=== PATIENT | female | born 1975 | race Caucasian/White ===

== ENCOUNTER → 2017-01-10 | Outpatient (CLI) | payer OTHER ==
[~2017-01-10] MED LIST: ALBUTEROL MININEB NEB; ALBUTEROL17 GM INH; COUMADIN2.5 MG PO; FISH OIL500 M1 PO; GABAPENTIN300 MG PO; HYDROCODON-ACE1 EAC5 PO; IBUPROFEN800 MG PO; NAPROSYN500 MG PO; NAPROXEN PO; OXYCODONE-ACET1 EAC1 PO; VITAMIN D50000 UNIT PO; ZESTRIL10 MG PO; ZOFRAN ODT4 MG PO
--- NOTE | ~2017-01-10 | EKG ---
PATIENT: LUAN CAMACHO UNIT #: [id number] Ventricular Rate: 70 BPM Atrial Rate: 70 BPM P-R Interval: 128 ms QRS Duration: 72 ms Q-T Interval: 406 ms QTC Calculation(Bezet): 438 ms P [place]: 24 degrees Calculated R [place]: 19 degrees Calculated T [place]: 36 degrees Diagnosis Line: Normal sinus rhythm with sinus arrhythmia Diagnosis Line: Normal ECG Diagnosis Line: No previous ECGs available Diagnosis Line: Confirmed by ARIEL LEI MD ([id number]) on 01/11/2017 Diagnosis Line: 6:30:29 PM INTERPRETING MD: QUIQUE MANUEL
--- NOTE | ~2017-01-10 | CR63 ---
[facility]. [facility] A Service of [facility] & [facility] RADIOLOGY TEXT RESULTS PATIENT: LUAN CAMACHO LOCATION: [facility] : [birth year] UNIT #: [id number] AGE: [address]: Wilmar Fuentes MD SEX: F ORDER DR: [id number] [facility] [address] [place], [place] [address] [id number] O MR#: [id number] Acc #: [id number] NAME: LUAN CAMACHO : 1975 SEX: F STUDY DATE/TIME: 01/10/2017 9:23 UNIT: [facility] ROOM: STUDY DESCRIPTION: CR Chest 2 View Attending Physician: Wilmar Fuentes M.D. Referring Physician: Wilmar Fuentes M.D. Ordering Physician: Wilmar Fuentes M.D. Primary Care Physician: Atiya Garcia M.D. 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 Instability. COMPARISON Chest, 09/30/2015 FINDINGS Two-view chest demonstrates normal cardiac size and configuration. Hilar structures and mediastinal contours are preserved. Bilateral lungs are clear. IMPRESSION Negative chest. Dictated by... Yogi Laureano M.D. THIS IS AN ELECTRONICALLY VERIFIED REPORT Yogi Laureano M.D. at 01/10/2017 3:35 PM Elizabeth TD: 01/10/2017 13:19 JOB #: [id number] MEDICAL IMAGING REPORT Page 1 of 1 COPY
--- NOTE | ~2017-01-10 | CO ---
Unit #: [id number] #: [id number] Patient: LUAN CAMACHO [id number] [address] [place], [place] [address] [id number] O MR#: [id number] NAME: LUAN CAMACHO ROOM: Age: 42 Sex: F Admission Date: 01/10/2017 : 1975 Attending Physician: Wilmar Fuentes M.D. Primary Care Physician: Atiya Garcia M.D. Consultation Date: 01/10/2017 CONSULTATION REPORT REASON FOR CONSULTATION Preoperative medical evaluation prior to conversion from unicompartmental knee to total right knee arthroplasty scheduled by Dr. Fuentes for 01/24/2017. HISTORY OF PRESENT ILLNESS The patient is a 42-year-old female, who presents to preprocedural screening for the reasons indicated above. Other than baseline complained pain in the right knee, she has no complaints today. She denies upper chest, back, arm, neck, jaw pain or pressure. She has a history of asthma and becomes short of air when climbing up stairs or on long walks. She attributes this to not using her inhaler in the past 3 months. She denies palpitations, dizziness, or fainting. Denies history of myocardial infarction, congestive heart failure, CVA, TIA, kidney disease, or diabetes mellitus. She is tested for HIV periodically due to a known and ongoing relationship exposure. She reports that all prior HIV evaluations have been negative. She has been evaluated by Dr. Fuentes and scheduled for the above-referenced procedure. PAST MEDICAL HISTORY Osteoarthritis; obesity, BMI of 35; asthma, controlled; hypertension; history of back pain; history of right lower extremity neuropathy; and known HIV exposure, most recent test one month ago through her significant other's provider in [place] with negative results per her report. PAST SURGICAL HISTORY Fallopian tube surgery, partial right total knee arthroplasty, and three arthroscopies. The patient denies a personal and family history of complications to anesthesia. SOCIAL HISTORY Denies tobacco use and illicit drug use. Consumes alcohol socially. FAMILY HISTORY Grandmother, breast cancer. Grandfather, throat cancer. Uncle, colon cancer. REVIEW OF SYSTEMS The patient denies urinary frequency, dysuria, hematuria, or foul-smelling urine. She prefers to await urine culture and sensitivity results prior to treatment with antibiotic as she is asymptomatic today. ALLERGIES Aspirin "gives her a bad headache." Denies latex allergy. Unit #: [id number] #: [id number] Patient: LUAN CAMACHO CURRENT MEDICATIONS Zestril 10 mg p.o. daily, gabapentin 300 mg p.o. t.i.d., albuterol sulfate 3 mL nebulized q.i.d., Ventolin 2 puffs inhaled q.i.d. p.r.n. wheezing, and hydrocodone/acetaminophen 10/325 mg tablet one p.o. at bedtime. PHYSICAL EXAMINATION GENERAL: A 42-year-old female. Awake and alert, in no acute distress. VITAL SIGNS: Temperature 98.8, heart rate 76, respiratory rate 16, blood pressure 131/90, and oxygen saturation 98% on room air. HEENT: Atraumatic and normocephalic. Sclerae anicteric. No discharge from eyes, ears, or nares. LYMPH: No preauricular, postauricular, tonsillar, submental, anterior, posterior, or cervical adenopathy. ENDOCRINE: No thyromegaly, thyroid nodules, or tenderness. RESPIRATORY: Clear to auscultation in all jenkins bilaterally without wheezes, rhonchi, or rales. CARDIOVASCULAR: S1 and S2. Regular rate and rhythm without murmur or rub. GI: Bowel sounds positive. Nontender. Nondistended. EXTREMITIES: No edema, cyanosis, or clubbing. MUSCULOSKELETAL: Strength 5/5 in all extremities bilaterally to flexion and extension with exception of right lower extremity, which is 4/5 due to complaints of right knee pain. NEUROLOGIC: Alert and oriented x3. Speech clear. Follows instructions during examination. DIAGNOSTIC STUDIES LABORATORY RESULTS: WBC 9.2, hemoglobin 13.6, hematocrit 40.0, and platelet count 221,000. Sodium 135, potassium 4.2, chloride 106, CO2 of 21, glucose 90, BUN 10, creatinine 0.6, calcium 9.1, AST 20, ALT 21, alkaline phos 79, bilirubin total 0.6, total protein 7.0, and albumin 4.2. PT 9.9 and INR 0.9. Urinalysis; leukocyte esterase 2+, nitrite negative, wbc's 50 to 100, and bacteria 3+. Urine culture and sensitivity pending at this time. MRSA nasal swab report pending at this time. HIV test from today is nonreactive. IMAGING STUDIES: Two-view chest x-ray report pending at this time. CARDIOLOGY STUDIES: Normal sinus rhythm with sinus arrhythmia and normal ECG. Confirmed report pending at this time. IMPRESSION AND PLAN 1. The patient is a 42-year-old female, who presents to preprocedural screening for the reasons indicated above. Her preop medical evaluation Wynn revised cardiac risk index is equal to 0.4%. This represents the patient's perioperative risk of fatal or nonfatal myocardial infarction, cardiopulmonary arrest, arrhythmia and/or pulmonary edema. This has been discussed with the patient in detail and she wishes to proceed with surgery as scheduled at this time. 2. Obesity, BMI of 45. Weight loss is recommended. 3. History of asthma. The patient is controlled at this time. We will order inhaled bronchodilator postoperatively if indicated. 4. Hypertension. Blood pressure is stable. We will monitor perioperatively and adjust medications and IV fluids accordingly if indicated. 5. History of back pain, stable. Unit #: [id number] #: [id number] Patient: LUAN CAMACHO 6. History of right lower extremity neuropathy. 7. Known human immunodeficiency virus exposure. The patient's human immunodeficiency virus test is nonreactive today. 8. Questionable urinary tract infection. Again, the patient is asymptomatic today. Urine culture and sensitivity is pending and I have ordered a recheck UA via straight cath the a.m. of OR. Thank you for allowing us to participate in the care of this patient. We will gladly follow her for postop medical management pending order of Dr. Fuentes. Dictated by... Yesi Myrick A.P.R.N. for Jorge Enriquez/anthony TD: 01/11/2017 13:40 JOB #: [id number] CONSULTATION REPORT Page 1 of 1 X Yesi Myrick APRN X CONSULTATION REPORT
[2017-01-10 08:56] LABS: HEMOGLOBIN 13.6 gm/dL (12.0-16.0); MEAN CELL VOLUME 82.9 FL (83-96); MEAN CORPUSCULAR HEMOGLOBIN 28.3 PG (28-34); MEAN CORPUSCULAR HGB CONC 34.1 g/dL (30-36); MEAN PLATELET VOLUME 7.7 FL (6.5-11.5); RED BLOOD COUNT 4.82 X10e (3.90-5.30); RED CELL DISTRIBUTION WIDTH 12.9 % (11.0-15.5); WHITE BLOOD COUNT 9.2 X10e3 (4.0-10.5)
[2017-01-10 08:59] LABS: URINE APPEARANCE CLOUDY; URINE BILIRUBIN NEG (NEG); URINE BLOOD NEG (NEG); URINE COLOR YELLOW; URINE GLUCOSE NEG (NEG); URINE KETONE NEG (NEG); URINE LEUKOCYTE ESTERASE 2+ (NEG); URINE NITRATE NEG (NEG); URINE PH 5.5 (5-8); URINE PROTEIN NEG (NEG); URINE SPECIFIC GRAVITY 1.027 (1.003-1.035)
[2017-01-10 09:02] LABS: CULTURE INDICATED? YES; URBCS1 AUWI 0-2 /[HPF] (0-2); URINE BACTERIA AUWI 3+ (NEGATIVE); URINE SQUAMOUS EPITHELIAL CELL FEW /[HPF]; UWBCS1 AUWI 50-100 (0-5)
[2017-01-10 09:06] LABS: INR 0.9; PROTHROMBIN TIME (PATIENT) 9.9 SECONDS (9.6-11.5)
[2017-01-10 09:11] LABS: URINE SOURCE CLEAN CATCH
[2017-01-10 09:51] LABS: ALBUMIN SERUM 4.2 g/dL (3.5-5.0); BILIRUBIN,TOTAL 0.6 mg/dL (0.2-2.0); BUN/CREATININE RATIO 16.66; CALCIUM SERUM 9.1 mg/dL (8.4-10.2); CREATININE SERUM 0.6 mg/dL (0.6-1.4); GLOM FILT RATE Estimated 111.6 mL/min (>60); POTASSIUM 4.2 mmol/L (3.5-5.1)
== END | disposition home or self-care (01) ==
LOC: CAMB 07:42
PROVIDERS: Orthopaedic Surgery
DX: Z01.818 Encounter for other preprocedural examination (principal); T84.022A Instability of internal right knee prosthesis, initial encounter; J45.909 Unspecified asthma, uncomplicated; R06.02 Shortness of breath; M54.9 Dorsalgia, unspecified; I10 Essential (primary) hypertension; Z79.01 Long term (current) use of anticoagulants
CPT/HCPCS: 36415; 71020; 80053; 81003; 85027; 85610; 86850; 86900; 86901; 87070; 87086; 87806; 93005

== ENCOUNTER 2017-01-24 05:18 | Inpatient (IN) | payer OTHER ==
--- NOTE | ~2017-01-24 | OR ---
Unit #: [id number] #: [id number] Patient: LUAN CAMACHO [id number] [address] [place], [place] [address] [id number] I MR#: [id number] NAME: LUAN CAMACHO. ROOM: [facility] Date of Procedure: 01/24/2017 Admission Date: 01/24/2017 Surgeon: Wilmar Fuentes M.D. : 1975 Attending Physician: Wilmar Fuentes M.D. Referring Physician: Wilmar Fuentes M.D. Primary Care Physician: Atiya Garcia M.D. OPERATIVE REPORT PREOPERATIVE DIAGNOSIS Painful medial unicompartment, right knee. POSTOPERATIVE DIAGNOSIS Painful medial unicompartment, right knee. PROCEDURE PERFORMED Conversion to right total knee. ASSISTANTS Adilene Monsivais and Rosanna Navarrete. ANESTHESIA Adductor canal block plus general. ESTIMATED BLOOD LOSS 100 mL. INDICATIONS FOR PROCEDURE This is a 42-year-old lady, who has had a medial unicompartmental replacement done in the past. She has continued to have discomfort. It is worse with walking or weightbearing. She has had some swelling in the knee, but no fevers or chills. Sepsis workup is negative, and she is brought to the hospital for conversion to a total knee. DESCRIPTION OF PROCEDURE The patient was brought to the holding room, given 2 g of Kefzol. This will be continued postop, but discontinued within 23 hours from the start time of surgery. The patient then had an adductor canal block performed and brought back to the operating room, given a general anesthetic. Tourniquet placed around the right thigh. The right leg was prepped and draped in a sterile fashion. The previous medial incision was used. It was carried proximally toward the midline and distally. The subcutaneous dissected away. Medial arthrotomy performed. Patella was slid to the side. At this time, there was mild arthritis in the lateral compartment. The polyethylene was removed from the metal-backed tibial unicompartment. We then used a 1/2-inch osteotome to remove the femoral component and immediately upon placing the osteotome under the femoral component. It came off the femur quite easily. The tibial tray was also removed quite easily. After these were out, the intramedullary reamer was used and using the intramedullary guide, a 6 degree valgus cut was made on the distal femur. The femur was sized and found to be a size 3. The Unit #: [id number] #: [id number] Patient: LUAN CAMACHO anterior-posterior cutting block was applied. Rotation was checked in the knee. Anterior and posterior cuts were made along with the chamfer cuts. Proximal tibial cut was then made using an external guide at the level of the medial tibial cut. Once this bone fragment was removed, we then removed any remaining meniscal fragments, injected the posterior capsule and the periosteum with ropivacaine. The trial femur was applied and the drill holes were made for lugs on the femoral component. The trial tibia was applied. We found that the 10 insert gave appropriate stability in extension and flexion. The patella was grasped with 2 towel clips, measured 20 mm thick, cut smooth at 13 and a 35 patella was the appropriate size. The 3 drill holes were made. Trial patella applied and it tracked properly. We then removed all the trials, used the drill and punch for the tibial tray. The knee was irrigated and dried while the cement was mixed and then all 3 components were cemented simultaneously. Once again, it was a size 3 femur cruciate retaining, 2.5 tray, and a 35 patella from the [employer]bas[employer] P[employer] knee system with a 10 mm insert cruciate retaining. The patient then had the tourniquet released. Hemostasis obtained. The rest of ropivacaine mixture was injected and then the wound was closed using 0 Ethibond in the arthrotomy, 0 and 2-0 Vicryl in the subcutaneous, and josé antonio in the skin. surgical assistant certified, Adilene Monsivais, present throughout the entire case. Dictated by... Wilmar Fuentes M.D. MANOLO/anthony TD: 01/25/2017 06:19 JOB #: [id number] OPERATIVE REPORT Page 1 of 1 X Wilmar Fuentes MD PROCEDURE OPERATIVE NOTE
--- NOTE | ~2017-01-24 | DS ---
Unit #: [id number] #: [id number] Patient: LUAN CAMACHO [id number] [address] [place], [place] [address] [id number] I MR#: [id number] NAME: LUAN CAMACHO. ROOM: [facility] Age: 42 Sex: F Admission Date: 01/24/2017 : 1975 Discharge Date: 01/26/2017 Attending Physician: Wilmar Fuentes M.D. Referring Physician: Wilmar Fuentes M.D. Primary Care Physician: Atiya Garcia M.D. DISCHARGE SUMMARY ADMITTING DIAGNOSIS Painful medial unicompartmental replacement, right knee. DISCHARGE DIAGNOSIS Painful medial unicompartmental replacement, right knee. PROCEDURE IN HOSPITAL Revision of the right knee uni to a total knee. SURGEON Wilmar Fuentes M.D. HOSPITAL COURSE The patient was admitted on January 24, taken to the operating room where she underwent the above procedure. Postoperatively, she has done well. First day after surgery, she is able to ambulate in the bernal. She did the stairs with physical therapy. It is felt she can be discharged home today. Her INR is 2.1. Her hemoglobin is 11.2. She is comfortable on her Percocet 10. Will make sure that home health is set up. Will check her pro times on Sunday and and adjust her dose appropriately. She is weightbearing as tolerated. Her condition on discharge is improved. DISPOSITION To home. Dictated by... Jorge Pickens/anahi TD: 01/26/2017 13:40 JOB #: [id number] Unit #: [id number] #: [id number] Patient: LUAN CAMACHO DISCHARGE SUMMARY Page 1 of 1 X Wilmar Fuentes MD X DISCHARGE SUMMARY
[~2017-01-24 05:18] MED LIST changes: -ALBUTEROL MININEB NEB; -ALBUTEROL17 GM INH; -COUMADIN2.5 MG PO; -GABAPENTIN300 MG PO; -HYDROCODON-ACE1 EAC5 PO; -NAPROSYN500 MG PO; -OXYCODONE-ACET1 EAC1 PO; -ZESTRIL10 MG PO
[2017-01-24 06:51] LABS: INR 1.1; PROTHROMBIN TIME (PATIENT) 11.4 SECONDS (10.0-11.7)
[2017-01-24] MEDS ORDERED: HYDROCODON-ACE1 EAC5 PO (09:01)
[2017-01-24] MEDS ORDERED: GABAPENTIN300 MG PO (10:53)
[2017-01-24] MEDS ORDERED: ZESTRIL10 MG PO (10:53)
[2017-01-24] MEDS ORDERED: ALBUTEROL MININEB NEB (10:53)
[2017-01-24] MEDS ORDERED: ALBUTEROL17 GM INH (10:54)
[2017-01-25 04:40] LABS: HEMATOCRIT 35.6 % (35.0-45.0); HEMOGLOBIN 11.7 gm/dL (12.0-16.0)
[2017-01-25 04:54] LABS: INR 1.8
[2017-01-25 04:55] LABS: PROTHROMBIN TIME (PATIENT) 20.1 SECONDS (10.0-11.7)
[2017-01-25 05:05] LABS: BUN/CREATININE RATIO 8.57; CALCIUM SERUM 8.1 mg/dL (8.4-10.2); CREATININE SERUM 0.7 mg/dL (0.6-1.4); GLOM FILT RATE Estimated 106.1 mL/min (>60); MAGNESIUM 1.7 mg/dL (1.6-3.0); POTASSIUM 4.5 mmol/L (3.5-5.1)
[2017-01-26 03:48] LABS: HEMATOCRIT 33.9 % (35.0-45.0); HEMOGLOBIN 11.2 gm/dL (12.0-16.0)
[2017-01-26 03:57] LABS: INR 2.1; PROTHROMBIN TIME (PATIENT) 23.3 SECONDS (10.0-11.7)
[2017-01-26 04:12] LABS: BUN/CREATININE RATIO 8.57; CALCIUM SERUM 8.9 mg/dL (8.4-10.2); CREATININE SERUM 0.7 mg/dL (0.6-1.4); GLOM FILT RATE Estimated 106.1 mL/min (>60); MAGNESIUM 1.8 mg/dL (1.6-3.0); POTASSIUM 4.2 mmol/L (3.5-5.1)
[2017-01-26] MEDS ORDERED: OXYCODONE-ACET1 EAC1 PO (11:38)
[2017-01-26] MEDS ORDERED: COUMADIN2.5 MG PO (11:39)
[2017-04-23] MEDS ORDERED: NAPROSYN500 MG PO (09:03)
== END 2017-01-26 12:25 | disposition home health service (06) | DRG 468 ==
LOC: CSUR 05:18 → CEDOF 08:31 → C4B 08:36 → CEDOF 10:28 → C4B 01-26 12:25
PROVIDERS: Nurse Practitioner; Orthopaedic Surgery
PROC: 0SPC0JZ Removal of Synthetic Substitute from Right Knee Joint, Open Approach (ICD-10-PCS; 2017-01-24)
PROC: 0SRC0J9 Replacement of Right Knee Joint with Synthetic Substitute, Cemented, Open Approach (ICD-10-PCS; principal; 2017-01-24 07:00)
DX: T84.022A Instability of internal right knee prosthesis, initial encounter (principal); E83.42 Hypomagnesemia; I10 Essential (primary) hypertension; G62.9 Polyneuropathy, unspecified; Z98.51 Tubal ligation status; E66.9 Obesity, unspecified; Z68.35 Body mass index [BMI] 35.0-35.9, adult; J45.909 Unspecified asthma, uncomplicated; R11.2 Nausea with vomiting, unspecified
CPT/HCPCS: 80048; 83735; 85014; 85018; 85610; 94640; 94760; 97110; 97116; 97161; 97165; 97530; 97535; C1776; J0131; J0171; J0690; J0735; J1100; J1170; J1885; J2250; J2405; J2795; J3010

== ENCOUNTER → 2017-02-13 | Outpatient (CLI) | payer OTHER ==
[~2017-02-13] MED LIST changes: +ALBUTEROL MININEB NEB; +ALBUTEROL17 GM INH; +COUMADIN2.5 MG PO; +GABAPENTIN300 MG PO; +HYDROCODON-ACE1 EAC5 PO; +NAPROSYN500 MG PO; +OXYCODONE-ACET1 EAC1 PO; +ZESTRIL10 MG PO
[2017-02-13 11:12] LABS: INR 1.9; PROTHROMBIN TIME (PATIENT) 20.9 SECONDS (10.0-11.7)
== END | disposition home or self-care (01) ==
LOC: CLAB 10:30
PROVIDERS: Orthopaedic Surgery
DX: Z51.81 Encounter for therapeutic drug level monitoring (principal); Z79.01 Long term (current) use of anticoagulants; Z96.651 Presence of right artificial knee joint
CPT/HCPCS: 36415; 85610

== ENCOUNTER → 2017-02-15 | Outpatient (CLI) | payer OTHER ==
[2017-02-15 17:52] LABS: INR 1.7
== END | disposition home or self-care (01) ==
LOC: CLAB 17:15
PROVIDERS: Orthopaedic Surgery
DX: Z51.81 Encounter for therapeutic drug level monitoring (principal); Z96.651 Presence of right artificial knee joint; Z79.01 Long term (current) use of anticoagulants
CPT/HCPCS: 36415; 85610

== ENCOUNTER → 2017-02-19 | Outpatient (CLI) | payer OTHER ==
[2017-02-19 17:56] LABS: INR 1.5; PROTHROMBIN TIME (PATIENT) 16.3 SECONDS (10.0-11.7)
== END | disposition home or self-care (01) ==
LOC: CLAB 17:28
PROVIDERS: Orthopaedic Surgery
DX: Z51.81 Encounter for therapeutic drug level monitoring (principal); Z96.651 Presence of right artificial knee joint; Z79.01 Long term (current) use of anticoagulants
CPT/HCPCS: 36415; 85610

== ENCOUNTER → 2017-02-22 | Outpatient (CLI) | payer OTHER ==
[2017-02-22 18:55] LABS: INR 1.8; PROTHROMBIN TIME (PATIENT) 19.4 SECONDS (10.0-11.7)
== END | disposition home or self-care (01) ==
LOC: CLAB 18:15
PROVIDERS: Orthopaedic Surgery
DX: Z51.81 Encounter for therapeutic drug level monitoring (principal); Z96.652 Presence of left artificial knee joint; Z79.01 Long term (current) use of anticoagulants
CPT/HCPCS: 36415; 85610

== ENCOUNTER → 2017-04-23 | Day surgery (SDC) | payer OTHER ==
--- NOTE | ~2017-04-23 | OR ---
Unit #: [id number] #: [id number] Patient: LUAN CAMACHO [id number] [address] [address] [id number] O MR#: [id number] NAME: LUAN CAMACHO ROOM: Date of Procedure: 04/23/2017 Admission Date: 04/23/2017 Surgeon: Wilmar Fuentes M.D. : 1975 Attending Physician: Wilmar Fuentes M.D. Referring Physician: Wilmar Fuentes M.D. Primary Care Physician: Atiya Garcia M.D. OPERATIVE REPORT PREOPERATIVE DIAGNOSIS Arthrofibrosis of the right total knee. POSTOPERATIVE DIAGNOSIS Arthrofibrosis of the right total knee. PROCEDURE PERFORMED Manipulation, right total knee. 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 ANESTHESIA General. DESCRIPTION OF PROCEDURE The patient was brought to the holding room, and then brought to the operating room, given a general anesthetic. After she was asleep, her range of motion was -5 to about 85 to 90 degrees of flexion. With manipulation of the right knee with palpable and audible release of adhesions, we were able to flex the knee to about 115, gained maybe 1 degree on extension. She then had her general anesthetic reversed and was transferred to the recovery room. Dictated by... Jorge Pickens/anthony TD: 04/23/2017 14:44 JOB #: [id number] Unit #: [id number] #: [id number] Patient: LUAN CAMACHO OPERATIVE REPORT Page 1 of 1 X Wilmar Fuentes MD PROCEDURE OPERATIVE NOTE
[2017-04-23 09:03] LABS: URINE SOURCE CLEAN CATCH
[2017-04-23 09:11] LABS: HEMATOCRIT 37.8 % (35.0-45.0); MEAN CELL VOLUME 84.1 FL (83-96); MEAN CORPUSCULAR HEMOGLOBIN 28.9 PG (28-34); MEAN CORPUSCULAR HGB CONC 34.4 g/dL (30-36); MEAN PLATELET VOLUME 8.1 FL (6.5-11.5); RED BLOOD COUNT 4.49 X10e (3.90-5.30); RED CELL DISTRIBUTION WIDTH 13.8 % (11.0-15.5); WHITE BLOOD COUNT 7.8 X10e3 (4.0-10.5)
[2017-04-23 09:17] LABS: URINE APPEARANCE CLOUDY; URINE BILIRUBIN NEG (NEG); URINE BLOOD NEG (NEG); URINE COLOR YELLOW; URINE GLUCOSE NEG (NEG); URINE KETONE NEG (NEG); URINE LEUKOCYTE ESTERASE TRACE (NEG); URINE NITRATE NEG (NEG); URINE PH 5.5 (5-8); URINE PROTEIN TRACE (NEG); URINE SPECIFIC GRAVITY 1.042 (1.003-1.035)
[2017-04-23 09:20] LABS: CULTURE INDICATED? YES; URINE SQUAMOUS EPITHELIAL CELL MANY /[HPF]
[2017-04-23 09:51] LABS: URINE MUCUS PRESENT
[2017-04-23 09:52] LABS: URINE CRYSTALS CALCIUM OXALATE /[HPF]
[2017-04-23 09:53] LABS: URBCS1 AUWI 0-2 /[HPF] (0-2); URINE BACTERIA AUWI 2+ (NEGATIVE)
[2017-04-23 10:01] LABS: BUN/CREATININE RATIO 17.14; CALCIUM SERUM 8.6 mg/dL (8.4-10.2); CREATININE SERUM 0.7 mg/dL (0.6-1.4); GLOM FILT RATE Estimated 106.1 mL/min (>60); POTASSIUM 4.3 mmol/L (3.5-5.1)
== END | disposition home or self-care (01) ==
LOC: CSUR 08:30
PROVIDERS: Orthopaedic Surgery
DX: M24.661 Ankylosis, right knee (principal); J45.909 Unspecified asthma, uncomplicated; M17.11 Unilateral primary osteoarthritis, right knee; I10 Essential (primary) hypertension; Z88.8 Allergy status to other drugs, medicaments and biological substances; Z79.899 Other long term (current) drug therapy; Z98.51 Tubal ligation status; Z96.651 Presence of right artificial knee joint; Z98.890 Other specified postprocedural states
CPT/HCPCS: 80048; 81003; 84703; 85027; 87086; J2270; J3010